=== PATIENT | male | born 1980 | race Caucasian/White ===

== ENCOUNTER 2018-05-23 18:29 | Emergency (ER) | payer BC, OTHER ==
[2018-05-23] MEDS ORDERED: HYDROmorphone 0.5 MG/0.5 ML SYRINGE IVPUSH ONE ×2 (19:04→19:56)
[2018-05-23] MEDS ORDERED: Metoclopramide 10 MG/2 ML SDV IVPUSH ONE (19:05)
--- NOTE | 2018-05-23 19:12 | EDM.PDOC ---
ED HPI GENERAL MEDICAL PROBLEM - General Chief Complaint: ENT Problem Stated Complaint: sob sore throat Time Seen by Provider: 05/23/18 18:55 Source of Information: Reports: Patient, Family History Limitations: Reports: No Limitations - History of Present Illness INITIAL COMMENTS - FREE TEXT/NARRATIVE: 29-year-old male presents the ED with a severe sore throat 48 hours. Associated fever occasional chills. Has had very little oral intake of food or fluids for the last 48 hours. To painful to swallow. Throat kept him awake last night. Been using Motrin with minimal relief. No one he knows is ill. He still has his tonsils in. Denies cough or sputum production. Denies nausea vomiting or diarrhea. Has a few mosquito bites right lower leg that are itchy. Medications were changed recently with change from citalopram to sertraline 2 days ago but this should not make any difference. He was concerned perhaps it was an allergic component to his illness. Has no ear pain but a sense of fullness in his ears. Onset: Sudden Onset Date: 05/21/18 Duration: Day(s): Location: Reports: Neck (Severe sore throat.) Quality: Reports: Ache, Burning Severity: Severe Improves with: Reports: None Worsens with: Reports: Eating Context: Denies: Activity (Try to swallow or drink.), Exercise, Lifting, Sick Contact Associated Symptoms: Reports: Fever/Chills, Malaise. Denies: Confusion, Chest Pain, Cough, cough w sputum, Diaphoresis, Headaches, Nausea/Vomiting, Rash, Seizure, Shortness of Breath, Syncope Treatments [employer]: Reports: NSAIDS (Motrin.) Throat Pain Score (Numeric/FACES): 7 - Related Data Allergies Allergy/AdvReac Type Severity Reaction Status Date / Time No Known Allergies Allergy Verified 05/23/18 18:41 Home Meds: Home Meds Allopurinol [Zyloprim] 200 mg PO DAILY 05/23/18 [History] Amoxicillin/Potassium Clav [Augmentin 500-125 Tablet] 1 each PO BID #18 tablet 05/23/18 [Rx] Sertraline HCl [Zoloft] 50 mg PO DAILY 05/23/18 [History] oxyCODONE HCl/Acetaminophen [Percocet 5-325 mg Tablet] 1 - 2 each PO Q4H PRN # 16 tablet 05/23/18 [Rx] Past Medical History - Past Health History Medical/Surgical History: Denies Medical/Surgical History Musculoskeletal History: Reports: Gout Psychiatric History: Reports: Anxiety, Depression Social & Family History - Tobacco Use Smoking Status *Q: Never Smoker - Caffeine Use Caffeine Use: Reports: Coffee - Recreational Drug Use Recreational Drug Use: No - Living Situation & Occupation Living situation: Reports: Occupation: Employed ED ROS ENT - Review of Systems Review Of Systems: See Below Constitutional: Reports: Fever, Chills, Malaise (Mild chills.), Weakness, Decreased Appetite, Other (Dizziness). Denies: Fatigue, Weight Loss HEENT: Reports: Throat Pain (Severe sore throat.). Denies: Ear Pain Respiratory: Reports: No Symptoms Cardiovascular: Reports: No Symptoms Endocrine: Reports: No Symptoms GI/Abdominal: Reports: No Symptoms : Reports: No Symptoms Musculoskeletal: Reports: No Symptoms Skin: Reports: No Symptoms Neurological: Reports: No Symptoms Psychiatric: Reports: No Symptoms Hematologic/Lymphatic: Reports: No Symptoms Immunologic: Reports: No Symptoms ED EXAM, ENT - Physical Exam Exam: See Below Exam Limited By: No Limitations General Appearance: Alert, WD/WN, Moderate Distress, Other (You can tell these starting to swallow. Voice is mildly hoarse.) Eye Exam: Bilateral Eye: Normal Inspection Ears: Other (Multiple scars on both tympanic membranes from multiple TM tube insertions. No active infection appreciated at this time) Mouth/Throat: Pharyngeal Erythema, Throat Pain ( Mild.), Throat Swelling ( Moderate diffuse pharyngeal erythema. Slight exudate right tonsil.), Tonsillar Erythema ( severe. moderate bilateral ), Tonsillar Exudates, Tonsillar Swelling (Mild on the right tonsil minimal.), Trismus (Mild.). No: Tongue Swelling, Uvular Deviation Neck: Supple, Non-Tender, Full Range of Motion, Lymphadenopathy (L) (Mild. Mild. ), Lymphadenopathy (R) Respiratory/Chest: No Respiratory Distress, Lungs Clear, Normal Breath Sounds, No Accessory Muscle Use, Chest Non-Tender Cardiovascular: Normal Peripheral Pulses, Regular Rate, Rhythm, No Edema, No Gallop, No Murmur, No Rub GI/Abdominal: Normal Bowel Sounds, Soft, Non-Tender, No Organomegaly, No Abnormal Bruit Back: Normal Inspection, Full Range of Motion. No: CVA Tenderness (L), CVA Tenderness (R) Extremities: Normal Inspection, Normal Range of Motion, Non-Tender, No Pedal Edema Neurological: Alert, Oriented, CN II-XII Intact, Normal Cognition, Normal Gait Psychiatric: Normal Affect, Normal Mood Skin: Warm, Dry, Intact, Normal Color, No Rash Course - Vital Signs Last Recorded V/S: Last Vital Signs Temp 38.2 C H 05/23/18 18:37 Pulse 88 05/23/18 18:37 Resp 16 05/23/18 18:37 BP 134/88 05/23/18 18:37 Pulse Ox 97 05/23/18 18:37 - Orders/Labs/Meds Orders: Active Orders 24 hr Category Date Time Status Soft Tissue Neck w Cont [CT] Stat Exams 05/23/18 19:57 Taken CULTURE STREP A CONFIRMATION [] Stat Lab 05/23/18 18:45 Results STREP SCRN A RAPID W CULT CONF [] Stat Lab 05/23/18 18:45 Results Dextrose 5%-0.9% NaCl [Dextrose 5%-Normal Saline] 1,000 Med 05/23/18 19:15 Active ml IV ASDIRECTED Ketorolac [Toradol] Med 05/23/18 19:15 Active 30 mg IVPUSH ONETIME Sodium Chloride 0.9% [Saline Flush] Med 05/23/18 20:02 Active 10 ml FLUSH ONETIME PRN cefTRIAXone [Rocephin] 2 gm Med 05/23/18 19:15 Active Sodium Chloride 0.9% [Normal Saline] 100 ml IV Q24H Medication Orders Dextrose/Sodium Chloride (Dextrose 5%-Normal Saline) 1,000 mls @ 999 mls/hr IV ASDIRECTED [facility] Last Admin: 05/23/18 19:27 Dose: 999 mls/hr Ceftriaxone Sodium 2 gm/ (Sodium Chloride) 100 mls @ 100 mls/hr IV Q24H [facility] Last Admin: 05/23/18 19:42 Dose: 100 mls/hr Ketorolac Tromethamine (Toradol) 30 mg IVPUSH ONETIME [facility] Last Admin: 05/23/18 19:29 Dose: 30 mg Sodium Chloride (Saline Flush) 10 ml FLUSH ONETIME PRN PRN Reason: IV FLUSH Last Admin: 05/23/18 20:11 Dose: 10 ml Labs: Laboratory Tests 05/23/18 05/23/18 05/23/18 Range/Units 19:25 19:25 19:25 WBC 12.32 H (4.23-9.07) K/mm3 RBC 5.42 (4.63-6.08) M/mm3 Hgb 15.4 (13.7-17.5) gm/L Hct 45.3 (40.1-51.0) % MCV 83.6 (79.0-92.2) fl MCH 28.4 (25.7-32.2) pg MCHC 34.0 (32.2-35.5) g/dl RDW Std Deviation 38.3 (35.1-43.9) fL Plt Count 247 (163-337) K/mm3 MPV 9.8 (9.4-12.3) fl Neutrophils % (Manual) 73 H (40-60) % Band Neutrophils % 0 (0-10) % Lymphocytes % (Manual) 13 L (20-40) % Atypical Lymphs % 5 % Monocytes % (Manual) 6 (2-10) % Eosinophils % (Manual) 3 (0.8-7.0) % Basophils % (Manual) 0 L (0.2-1.2) Platelet Estimate Adequate RBC Morph Comment Normal Sodium 139 (136-145) mEq/L Potassium 3.7 (3.5-5.1) mEq/L Chloride 103 (98-107) mEq/L Carbon Dioxide 29 (21-32) mEq/L Anion Gap 10.7 (5-15) BUN 13 (7-18) mg/dL Creatinine 1.3 (0.7-1.3) mg/dL Est Cr Clr Drug Dosing 74.54 mL/min Estimated GFR (MDRD) > 60 (>60) mL/min BUN/Creatinine Ratio 10.0 L (14-18) Glucose 95 (74-106) mg/dL Calcium 9.0 (8.5-10.1) mg/dL Total Bilirubin 0.7 (0.2-1.0) mg/dL AST 17 (15-37) U/L ALT 25 (16-63) U/L Alkaline Phosphatase 69 (46-116) U/L C-Reactive Protein 6.9 H* (<1.0) mg/dL Total Protein 7.8 (6.4-8.2) g/dl Albumin 3.9 (3.4-5.0) g/dl Globulin 3.9 gm/dL Albumin/Globulin Ratio 1.0 (1-2) Monoscreen Negative (NEGATIVE) Meds: Medications Generic Name Dose Route Start Last Admin Trade Name Freq PRN Reason Stop Dose Admin Dextrose/Sodium Chloride 1,000 mls @ 999 mls/hr 05/23/18 19:15 05/23/18 19:27 Dextrose 5%-Normal Saline IV 999 mls/hr ASDIRECTED AYALA Administration Ceftriaxone Sodium 2 gm/ 100 mls @ 100 mls/hr 05/23/18 19:15 05/23/18 19:42 Sodium Chloride IV 100 mls/hr Q24H AYALA Administration Ketorolac Tromethamine 30 mg 05/23/18 19:15 05/23/18 19:29 Toradol IVPUSH 30 mg ONETIME AYALA Administration Sodium Chloride 10 ml 05/23/18 20:02 05/23/18 20:11 Saline Flush FLUSH 10 ml ONETIME PRN Administration IV FLUSH Discontinued Medications Generic Name Dose Route Start Last Admin Trade Name Dhruvq PRN Reason Stop Dose Admin Dexamethasone 10 mg 05/23/18 19:30 05/23/18 19:41 Dexamethasone IV 05/23/18 19:31 10 mg ONETIME ONE Administration Hydromorphone HCl 0.5 mg 05/23/18 19:04 05/23/18 19:30 Dilaudid IVPUSH 05/23/18 19:05 0.5 mg ONETIME ONE Administration Hydromorphone HCl 1 mg 05/23/18 19:56 05/23/18 20:01 Dilaudid IVPUSH 05/23/18 19:57 1 mg ONETIME ONE Administration Iopamidol 100 ml 05/23/18 20:02 05/23/18 20:11 Isovue-300 (61%) IVPUSH 05/23/18 20:03 100 ml ONETIME ONE Administration Metoclopramide HCl 7.5 mg 05/23/18 19:05 05/23/18 19:29 Reglan IVPUSH 05/23/18 19:06 7.5 mg ONETIME ONE Administration - Radiology Interpretation Free Text/Narrative:: 37-year-old male presents to the ED with a severe sore throat for the last 48 hours. Associated very little intake orally for the last 48 hours due to pain. Associated fever occasional chills. Examination shows mild pharyngitis with some exudate on the right tonsil. Tonsils are not grossly inflamed or swollen. He does have mild diffuse cervical lymphadenopathy or submandibular adenopathy that is painful. Plan rapid strep screen. Monospot. Routine labs without blood cultures at this time. IV will be D5 normal saline at open. Toradol 30 mg IV with Dilaudid 0.5 mg IV and Reglan 7.5 mg IV for pain and nausea relief. Will start on Rocephin 2 g IV Unasyn his labs are drawn. Contemplate use of dexamethasone depending on lab values. - Re-Assessments/Exams Free Text/Narrative Re-Assessment/Exam: 05/23/18 19:25 rapid strep screen came back negative. 05/23/18 20:13 labs are back.Labs reveal a normal white count at 8.15 with a normal automated differential at 60% neutrophils. Hemoglobin is 14.9 with hematocrit of 42.7. Platelet count is 292,000. Sodium is 138 with potassium at 3.5. Chloride 101. Bicarbonate 25. Anion gap slightly elevated at 115.5. BUNs was 17. Creatinine 1.2. Glucose is 103.. Serum calcium is 8.8. Liver function is normal. Since he did have don't have a real formal cause for his pharyngeal infection. I'm going to have CT of his soft tissue of his neck performed with IV contrast. 05/23/18 20:38 CT of the soft tissues of the neck with IV contrast was performed. No positive findings identified other than a punctate calculus in the right submandibular gland itself. There is no retropharyngeal swelling or abscess. There is no peritonsillar abscess. Therefore the cause of his pharyngitis appears to be bacterial but of unclear etiology. Cultures are pending. Probably to finish up his IV fluids after IV Rocephin is completed. He will then be discharged on Augmentin 500 mg twice daily starting tomorrow morning for the next 9 days. Percocet tabs 04/02/25 one or 2 every 4-6 hours needed for pain relief. Continuing Motrin 600 mg every 6 hours for relief of pain and fever. Should improve over the next 48-72 hours. If not he needs to be reviewed. Departure - Departure Time of Disposition: 21:26 Disposition: Home, Self-Care 01 Condition: Fair Clinical Impression: Pharyngitis Qualifiers: Pharyngitis/tonsillitis etiology: unspecified etiology Qualified Code(s): J02.9 - Acute pharyngitis, unspecified - Discharge Information Prescriptions: Amoxicillin/Potassium Clav [Augmentin 500-125 Tablet] 1 each PO BID #18 tablet oxyCODONE HCl/Acetaminophen [Percocet 5-325 mg Tablet] 1 - 2 each PO Q4H PRN # 16 tablet PRN Reason: pain relief. Instructions: Pharyngitis, [id number] Referrals: Jenae Starr PA-C [Primary Care Provider] - Forms: ED Department Discharge Additional Instructions: Evaluation the emergency room today in regards to a 2 day history of severe sore throat with limited ability to eat and drink. Associated fever with mild chills. Examination reveals inflammation of the back of the throat with very minimal swelling of the tonsils. There was no evidence of peritonsillar abscess. Rapid strep screen proved to be negative. Monospot was negative as well. Labs revealed a mild elevation of the white blood cell count and CRP , which is a measurement of infection, is also mildly elevated as well suggesting an underlying bacterial infection. The cause is unclear. Throat cultures are pending. CT of the soft tissues of the neck was performed and no serious pathology was identified behind the throat muscles or in the peritonsillar spaces. You're treated with initial dose of antibiotic in the emergency room Rocephin 2 g. He received pain medications Dilaudid 1.5 mg and Toradol 30 mg IV. You were also given a steroid dexamethasone 10 mg IV which will start work in 4-6 hours. This is designed to reduce pain and swelling in your throat. treatment at home is plenty of fluids such as Gatorade or Powerade to prevent dehydration. Avoiding acidic products such as orange juice etc. Soft diet such as ice cream, yogurt etc. Motrin 600 mg every 6 hours as needed for pain and inflammation and fever relief. Antibiotic is to be Augmentin 500 mg twice daily for the next 9 days starting tomorrow morning. Pain medication is Percocet 5/325 milligrams one or 2 every 4-6 hours needed for pain relief usually with something in your stomach. They can cause nausea on a completely empty stomach. Expect improvement over the next 48-72 hours. If not you should be seen again. - My Orders Last 24 Hours: My Active Orders 05/23/18 18:45 CULTURE STREP A CONFIRMATION [RM] Stat STREP SCRN A RAPID W CULT CONF [RM] Stat 05/23/18 19:15 Dextrose 5%-0.9% NaCl [Dextrose 5%-Normal Saline] 1,000 ml IV ASDIRECTED Ketorolac [Toradol] 30 mg IVPUSH ONETIME cefTRIAXone [Rocephin] 2 gm Sodium Chloride 0.9% [Normal Saline] 100 ml IV Q24H 05/23/18 19:57 Soft Tissue Neck w Cont [CT] Stat 05/23/18 20:02 Sodium Chloride 0.9% [Saline Flush] 10 ml FLUSH ONETIME PRN - Assessment/Plan Last 24 Hours: My Active Orders 05/23/18 18:45 CULTURE STREP A CONFIRMATION [RM] Stat STREP SCRN A RAPID W CULT CONF [RM] Stat 05/23/18 19:15 Dextrose 5%-0.9% NaCl [Dextrose 5%-Normal Saline] 1,000 ml IV ASDIRECTED Ketorolac [Toradol] 30 mg IVPUSH ONETIME cefTRIAXone [Rocephin] 2 gm Sodium Chloride 0.9% [Normal Saline] 100 ml IV Q24H 05/23/18 19:57 Soft Tissue Neck w Cont [CT] Stat 05/23/18 20:02 Sodium Chloride 0.9% [Saline Flush] 10 ml FLUSH ONETIME PRN
[2018-05-23] MEDS ORDERED: Ketorolac 30 MG/ML SDV IVPUSH SCH (19:15)
[2018-05-23] MEDS ORDERED: Dextrose 5%-0.9% NaCl 1,000 ML IV SCH (19:15)
[2018-05-23] MEDS ORDERED: cefTRIAXone 2 GM in Sodium Chloride 0.9% 100 ML IV SCH (19:15)
[2018-05-23] MEDS ORDERED: Dexamethasone 4 MG/ML 5 ML MDV IV ONE (19:30)
[2018-05-23] MEDS ORDERED: Sodium Chloride 0.9% 10 ML Syringe FLUSH PRN (20:02)
[2018-05-23] MEDS ORDERED: Iopamidol 612 MG/ML 100 ML Bottle IVPUSH ONE (20:02)
--- NOTE | 2018-05-25 08:54 | CT ---
CT neck Technique: Multiple axial sections through the neck were obtained. Intravenous contrast was utilized. Comparison: No prior CT neck exam. Findings: Mucosal thickening with questionable small amount of fluid within the right maxillary sinus is noted. Other paranasal sinuses that are seen appear clear. Parotid salivary glands are unremarkable. Calcification is noted next to the right submandibular salivary gland possibly within the submandibular salivary duct. Submandibular salivary glands are otherwise unremarkable. Scattered lymph nodes are seen within the neck which are felt to be within normal limits. Parapharyngeal soft tissues are normal. No enhancing vascular structures are seen. Thyroid gland appears within normal limits. Visualized lung apices are clear. Epiglottis is normal in size. Prevertebral soft tissues are within normal limits. Bone window settings were reviewed which show nothing acute. Impression: 1. Calcification next to the submandibular salivary gland possibly within the right submandibular salivary duct. 2. Mucosal thickening within right maxillary sinus with questionable small amount of right maxillary fluid. 3. No additional abnormality is seen on CT study of the neck. Diagnostic code #3 Agree with preliminary report issued by [facility] ([facility] preliminary report dictated on 05/23/18, 9:27 PM Central Time)
== END 2018-05-23 21:37 | disposition home or self-care (01) ==
LOC: JD.ED 18:29
DX: J02.9 Acute pharyngitis, unspecified (principal); F41.9 Anxiety disorder, unspecified; F32.9 Major depressive disorder, single episode, unspecified; Z79.899 Other long term (current) drug therapy
CPT/HCPCS: 36415; 70491; 80053; 85007; 85027; 86140; 86308; 87081; 87430; 96361; 96365; 96375; 96376; 99284; J0696; J1100; J1170; J1885; J2765; J7030; J7042; J7050; Q9967

== ENCOUNTER 2020-01-26 06:18 | Day surgery (SDC) | payer MEDICAID ==
--- NOTE | 2020-01-26 05:54 | PCM.PREANE ---
Preanesthetic Assessment - Anesthesia/Transfusion/Family Hx Anesthesia History: Prior Anesthesia Without Reaction Family History of Anesthesia Reaction: No Transfusion History: No Prior Transfusion(s) Intubation History: Unknown - Review of Systems General: No Symptoms Pulmonary: No Symptoms (ETOH: occasionally) Cardiovascular: No Symptoms Gastrointestinal: No Symptoms Neurological: No Symptoms (Acute lower back pain-denies any today.) Other: Reports: Thyroid Problems (History of thyroiditis), Sinus Problem ( History of acute sinusitis), Neck Pain (denies any pain today.), Anxiety - Physical Assessment NPO Status Date: 01/25/20 NPO Status Time: 21:30 Vital Signs: HR:85 BP:133/100 Resp:16 Sat:95% Temp:98 Height: 1.73 m Weight: 94.801 kg ASA Class: 2 Mental Status: Alert & Oriented x3 Airway Class: Mallampati = 3 Dentition: Reports: Normal Dentition, Caries Thyro-Mental Finger Breadths: 3 Mouth Opening Finger Breadths: 2 ROM/Head Extension: Full Lungs: Clear to Auscultation, Normal Respiratory Effort Cardiovascular: Regular Rate, Regular Rhythm, No Murmurs - Lab Values: Laboratory Last Values MRSA (PCR) Negative 01/18/20 14:58 All labs reviewed and noted and within acceptable ranges to proceed with scheduled procedure. - Allergies Allergies/Adverse Reactions: Allergies Allergy/AdvReac Type Severity Reaction Status Date / Time No Known Allergies Allergy Verified 01/25/20 14:07 - Anesthesia Plan Pre-Op Medication Ordered: None - Acknowledgements Anesthesia Type Planned: General Anesthesia (Left ISB under US guidance for post operative pain control requested by Dr. Medina.) Pt an Appropriate Candidate for the Planned Anesthesia: Yes Alternatives and Risks of Anesthesia Discussed w Pt/Guardian: Yes Pt/Guardian Understands and Agrees with Anesthesia Plan: Yes PreAnesthesia Questionnaire - Past Health History Medical/Surgical History: Denies Medical/Surgical History HEENT History: Reports: Epistaxis, Impaired Vision, Otitis Media, Sinusitis, Other (See Below) Other HEENT History: ear ache, nasal polyp, sore throat, tonsillitis, strep throat Cardiovascular History: Reports: None Respiratory History: Reports: Other (See Below) Other Respiratory History: upper respiratory infection, acute bronchitis, wheezing Gastrointestinal History: Reports: None Genitourinary History: Reports: None LITHOPRESS OPERATOR History: Reports: None Musculoskeletal History: Reports: Back Pain, Chronic, Gout Other Musculoskeletal History: right ankle pain Neurological History: Reports: Other (See Below) Other Neuro History: neck pain Psychiatric History: Reports: Anxiety, Depression Endocrine/Metabolic History: Reports: Other (See Below) Other Endocrine/Metabolic History: thyroid pain, thyroiditis Hematologic History: Reports: None Immunologic History: Reports: None Oncologic (Cancer) History: Reports: None Dermatologic History: Reports: None - Past Surgical History Head Surgeries/Procedures: Reports: None HEENT Surgical History: Reports: Myringotomy w Tube(s), Tonsillectomy Cardiovascular Surgical History: Reports: None Respiratory Surgical History: Reports: None GI Surgical History: Reports: None Female Surgical History: Reports: None Male Surgical History: Reports: None Endocrine Surgical History: Reports: None Neurological Surgical History: Reports: None Musculoskeletal Surgical History: Reports: Shoulder Surgery Other Musculoskeletal Surgeries/Procedures:: right ankle surgery, facial surgery Oncologic Surgical History: Reports: None Dermatological Surgical History: Reports: None - SUBSTANCE USE Smoking Status *Q: Former Smoker Recreational Drug Use History: No - HOME MEDS Home Medications: Home Meds Sertraline HCl [Zoloft] 50 mg PO DAILY 05/23/18 [History] allopurinoL [Zyloprim] 200 mg PO DAILY 05/23/18 [History] Diclofenac Sodium 1 dose TOP DAILY PRN 01/25/20 [History] Acetaminophen/HYDROcodone [Curtis 325-5 MG] 1 - 2 tab PO Q6H PRN #40 tablet 01/26 [Rx] Cyclobenzaprine [Flexeril] 10 mg PO Q12H PRN #30 tab 01/26/20 [Rx] - CURRENT (IN HOUSE) MEDS Current Meds: Current Medications Epinephrine HCl (Adrenalin) 3 mg IRR ONETIME AYALA Stop: 01/26/20 11:00 Lactated Ringer's (Ringers, Lactated) 1,000 mls @ 125 mls/hr IV ASDIRECTED AYALA Stop: 01/26/20 23:00 Lidocaine/Sodium Bicarbonate (Buffered Lidocaine 1% In Ns 8.4%) 0.25 ml IDERM ONETIME PRN PRN Reason: Prior to IV Start Stop: 01/26/20 18:00 Sodium Chloride (Saline Flush) 10 ml FLUSH ASDIRECTED PRN PRN Reason: Keep Vein Open Stop: 01/26/20 18:00 Discontinued Medications Epinephrine HCl (Adrenalin) Confirm Administered Dose 1 mg .ROUTE .STK-MED ONE Stop: 01/26/20 05:33 Lidocaine HCl (Xylocaine-Mpf 1%) Confirm Administered Dose 2 mls @ as directed .ROUTE .STK-MED ONE Stop: 01/26/20 05:33 Ropivacaine (Naropin 0.5%) Confirm Administered Dose 30 ml .ROUTE .STK-MED ONE Stop: 01/26/20 05:33
[~2020-01-26 06:18] MED LIST: Albuterol 0.083% 2.5 MG/3 ML Neb Soln NEB PRN; EPINEPHrine 1 MG/ML SDV ONE; Lidocaine 1% 2 ML ONE; Ropivacaine 0.5% 5 MG/ML 30 ML SDV ONE
[2020-01-26] MEDS ORDERED: Lidocaine 1% 6 ML ONE (06:26)
[2020-01-26] MEDS ORDERED: Ondansetron 4 MG/2 ML SDV ONE (06:26)
[2020-01-26] MEDS ORDERED: Propofol 200 MG/20 ML SDV ONE ×2 (06:26→07:29)
[2020-01-26] MEDS ORDERED: ceFAZolin 1 GM Vial ONE (06:26)
[2020-01-26] MEDS ORDERED: Lactated Ringers 1,000 ML ONE (06:26)
[2020-01-26] MEDS ORDERED: Dexamethasone 4 MG/ML 5 ML MDV ONE (06:26)
[2020-01-26] MEDS ORDERED: Ketorolac 30 MG/ML SDV ONE ×2 (06:26→10:24)
[2020-01-26] MEDS ORDERED: Rocuronium 50 MG/5 ML Vial ONE (06:26)
[2020-01-26] MEDS ORDERED: Midazolam 1 MG/ML 2 ML SDV ONE (06:27)
[2020-01-26] MEDS ORDERED: fentaNYL 250 MCG/5 ML SDV ONE (06:27)
[2020-01-26] MEDS ORDERED: Lidocaine 1%/Sod Bicarbonate in NS 8.4% 1 ML Syringe IDERM PRN (07:00)
[2020-01-26] MEDS ORDERED: Sodium Chloride 0.9% 10 ML Syringe FLUSH PRN (07:00)
[2020-01-26] MEDS ORDERED: Lactated Ringers 1,000 ML IV SCH (07:00)
[2020-01-26] MEDS ORDERED: EPINEPHrine 1 MG/ML 30 ML MDV IRR SCH (07:00)
--- NOTE | 2020-01-26 07:17 | PCM.SN ---
- Free Text/Narrative Note: Date: 01/26/2020 Time Out: 658 Start: 658 Stop: 708 Diagnosis: Left arm strain of tendon of long head of biceps Current Procedure: Left interscalene block under US guidance for postoperative pain control requested by Dr. Medina. Patient chart reviewed, risk/benefits discussed with patient, consent obtained. Patient positioned supine, monitors/alarms on, oxygen placed via nasal cannula at 2 LPM. IV sedation administered: Versed 2mg IV, Fentanyl 150mcg IV given in preop prior to block placement. Left shoulder prepped with two chloropreps. Sterile drapes placed with aseptic technique noted. Under US guidance, left subclavian artery visualized along with the left brachial plexus. Plexus followed up to C6 cricoid level, and area localized with 2mls of 1% lidocaine. 22gauge 2 inch stimiplex needle advanced under US with 0.6mV with stimulation of biceps noted. Good stimulation noted with decreased voltage and absent at 0.3mVs. 1ml of Normal Saline injected with loss of stimulation noted to confirm needle not placed intraneurally. Incremental dosing of 5mls with negative aspiration noted prior to each injection of 0.5% ropivacaine with 1:200,000 epinephrine. Total volume=30mls. Please refer to nurses noted for vital signs. Payton Ruiz CRNA
[2020-01-26] MEDS ORDERED: Albuterol 0.083% 2.5 MG/3 ML Neb Soln NEB PRN (07:57)
[2020-01-26] MEDS ORDERED: fentaNYL 100 MCG/2 ML SDV IVPUSH PRN (07:57)
[2020-01-26] MEDS ORDERED: Midazolam 1 MG/ML 2 ML SDV IVPUSH PRN (07:57)
[2020-01-26] MEDS ORDERED: Ondansetron 4 MG/2 ML SDV IVPUSH PRN (07:57)
[2020-01-26] MEDS ORDERED: diphenhydrAMINE 50 MG/ML SDV IVPUSH PRN (07:57)
[2020-01-26] MEDS ORDERED: HYDROmorphone 0.5 MG/0.5 ML Syringe IVPUSH PRN (07:57)
[2020-01-26] MEDS ORDERED: ePHEDrine 50 MG/ML SDV IVPUSH PRN (07:57)
[2020-01-26] MEDS ORDERED: Phenylephrine 1 MG in Sodium Chloride 0.9% 10 ML IV SCH (08:00)
--- NOTE | 2020-01-26 09:13 | PCM.POSTAN ---
POST ANESTHESIA ASSESSMENT - MENTAL STATUS Mental Status: Alert - VITAL SIGNS Vital Signs: Last Vital Signs Temp 97.6 01/26/20904 Pulse 103 01/26/2005 Resp 23 01/26/20904 BP 150/110 01/26/20904 Pulse Ox 97 01/26/20904 - RESPIRATORY Respiratory Status: Respiratory Rate WNL, Airway Patent, O2 Saturation Stable, Supplemental Oxygen - CARDIOVASCULAR CV Status: Pulse Rate WNL, Blood Pressure Stable - GASTROINTESTINAL GI Status: No Symptoms - POST OP HYDRATION Hydration Status: Adequate & Stable
--- NOTE | 2020-01-26 11:55 | PCM48HPAN ---
Post Anesthesia Note - EVALUATION WITHIN 48HRS OF ANESTHETIC Vital Signs in Normal Range: Yes Patient Participated in Evaluation: Yes Respiratory Function Stable: Yes Airway Patent: Yes Cardiovascular Function Stable: Yes Hydration Status Stable: Yes Pain Control Satisfactory: Yes Nausea and Vomiting Control Satisfactory: Yes Mental Status Recovered: Yes Vital Signs: Last Vital Signs Temp 36.9 C 01/26/20 10:35 Pulse 80 01/26/20 10:35 Resp 18 01/26/20 10:35 BP 126/82 01/26/20 10:35 Pulse Ox 96 01/26/20 10:35
--- NOTE | 2020-01-28 13:17 | PCM.OPNOTE ---
- General Post-Op/Procedure Note Date of Surgery/Procedure: 01/26/20 Operative Procedure(s): left shoulder video arthroscopy with biceps tenotomy, extensive debridement and subacromial decompression Pre Op Diagnosis: left shoulder biceps tendinopathy with SLAP tear and impingement Post-Op Diagnosis: Same Anesthesia Technique: General ET Tube, Regional Block Primary Surgeon: Taiwo Medina Anesthesia Provider: Payton Ruiz Share Dairy Farmer: Carissa Thomas EBMike in mLs: 5 Complications: None Condition: Good
--- NOTE | 2020-01-31 13:55 | OR ---
DATE OF OPERATION: 01/26/2020 SURGEON: Taiwo Medina MD OPERATION PERFORMED: Left shoulder video arthroscopy with biceps tenotomy, extensive debridement, subacromial decompression. PREOPERATIVE DIAGNOSIS: Left shoulder biceps tendinopathy with SLAP tear and impingement. POSTOPERATIVE DIAGNOSIS: Left shoulder biceps tendinopathy with type 1 SLAP tear and impingement. ANESTHESIA: General endotracheal intubation with regional interscalene block. ANESTHESIA PROVIDER: Payton Ruiz CRNA TOILET ATTENDANT: Carissa Thomas PA-C ESTIMATED BLOOD LOSS: Less than 5 mL. COMPLICATIONS: None. CONDITION: Stable. DESCRIPTION OF PROCEDURE: The patient was identified in the preoperative holding area where proper site was marked and identified by surgeon. The patient was taken back to operating theater where after adequate anesthesia the patient was placed in the lazy right lateral decubitus position. Wedge was placed posteriorly. The patient was secured to the table. Left shoulder was then sterilely prepped and draped in usual sterile fashion. OR time-out was performed. The patient received 2 g IV Ancef. 12 pounds of traction was applied to the left upper extremity. Standard posterior incision was made and scope trocar was introduced to glenohumeral joint. This showed extensive fraying of the superior labrum as well as biceps tendinopathy and erythema and fraying of the biceps tendon near its attachment. The subscapularis tendon was intact. The articular surface showed no signs of chondromalacia. The undersurface of the rotator cuff was intact with no signs of erythema. At this time, an anterior portal was created with the use of outside-in technique. A biceps tenotomy was then performed and an extensive debridement of any loose fragments of the labrum as well as the attachment of the biceps was done at this time. Attention was turned to the subacromial space. A lateral portal was created. The patient was noted to have a large amount of bursa in the subacromial space as well as a type 2 acromion with significant fraying of the CA ligament anteriorly. An extensive debridement was done of the subacromial space, and then with a 4.0 full-radius branden, I was able to do a subacromial decompression and acromioplasty bringing it back to a smooth border with the posterior border. The AC joint was found to be intact with no signs of erythema and limited arthritis. The rotator cuff was otherwise intact with no signs of fraying. Excess saline was drained from the shoulder. 3-0 nylon suture was used for closure of the skin. The patient had a sterile soft dressing applied as well as a pillow sling and sent to the PACU in stable condition. DARION /[id number]
== END 2020-01-26 11:04 | disposition home or self-care (01) ==
LOC: JD.SDS 06:18
PROVIDERS: ATTEND Orthopaedic Surgery
DX: S43.432A Superior glenoid labrum lesion of left shoulder, initial encounter (principal); S46.112A Strain of muscle, fascia and tendon of long head of biceps, left arm, initial encounter; M75.22 Bicipital tendinitis, left shoulder; M75.42 Impingement syndrome of left shoulder; F41.9 Anxiety disorder, unspecified; Z79.899 Other long term (current) drug therapy; Z98.890 Other specified postprocedural states
CPT/HCPCS: 29823; 29826; 87641; J0171; J0690; J1100; J1885; J2001; J2250; J2405; J2704; J2795; J3010; J7120; 01630; 64415

== ENCOUNTER 2022-01-23 07:11 | Day surgery (SDC) | payer MEDICAID ==
[~2022-01-23 07:11] MED LIST changes: -Albuterol 0.083% 2.5 MG/3 ML Neb Soln NEB PRN; +Dexmedetomidine 200 MCG/2 ML SDV ONE; -EPINEPHrine 1 MG/ML SDV ONE; +Lactated Ringers 1,000 ML IV SCH; -Lidocaine 1% 2 ML ONE; +Lidocaine 1%/Sod Bicarbonate in NS 8.4% 1 ML Syringe IDERM PRN; +Sodium Chloride 0.9% 10 ML Syringe FLUSH PRN; +Sodium Chloride 0.9% 10 ML Syringe FLUSH SCH
[2022-01-23] MEDS ORDERED: Dexamethasone 4 MG/ML 5 ML MDV ONE (07:12)
[2022-01-23] MEDS ORDERED: Midazolam 1 MG/ML 2 ML SDV ONE ×2 (07:12→07:13)
[2022-01-23] MEDS ORDERED: fentaNYL 100 MCG/2 ML SDV ONE (07:13)
[2022-01-23] MEDS ORDERED: EPINEPHrine 1 MG/ML 30 ML MDV IRR SCH (07:15)
[2022-01-23] MEDS ORDERED: Lidocaine 1% PF 2 ML SDV ONE ×2 (08:00)
[2022-01-23] MEDS ORDERED: Bupivacaine 0.5% 30 ML SDV ONE (08:05)
[2022-01-23] MEDS ORDERED: Propofol 200 MG/20 ML SDV ONE (08:47)
[2022-01-23] MEDS ORDERED: ceFAZolin 1 GM Vial ONE (10:04)
[2022-01-23] MEDS ORDERED: Ondansetron 4 MG/2 ML SDV ONE (10:08)
== END 2022-01-23 13:30 | disposition home or self-care (01) ==
LOC: JD.SDS 07:11
PROVIDERS: ATTEND Orthopaedic Surgery
DX: S43.431A Superior glenoid labrum lesion of right shoulder, initial encounter (principal); M75.41 Impingement syndrome of right shoulder; M75.21 Bicipital tendinitis, right shoulder; F41.9 Anxiety disorder, unspecified; M10.9 Gout, unspecified; F32.A Depression, unspecified; Z88.8 Allergy status to other drugs, medicaments and biological substances; Z79.899 Other long term (current) drug therapy; Z98.890 Other specified postprocedural states; Z87.891 Personal history of nicotine dependence
CPT/HCPCS: 29807; 29826; C1713; J0171; J0690; J1100; J2250; J2405; J2704; J2795; J3010; J3490; J7120; 01630; 64415; 76942

== ENCOUNTER 2025-06-13 14:33 | Emergency (ER) | payer MEDICAID ==
[2025-06-13 15:46] LABS: BASOPHILS ABSOLUTE AUTO 0.1 K/mm3 (0.0-0.2); BASOPHILS PERCENT AUTO 0.7 % (0.0-1.0); EOSINOPHILS ABSOLUTE AUTO 0.2 K/mm3 (0.0-0.4); EOSINOPHILS PERCENT AUTO 2.7 % (0.0-6.0); IMMATURE GRAN ABSOLUTE AUTO 0.06 K/mm3 (0.00-0.05); IMMATURE GRAN PERCENT AUTO 0.7 % (0.0-0.4); LYMPHOCYTES ABSOLUTE AUTO 2.1 K/mm3 (1.0-4.8); LYMPHOCYTES PERCENT AUTO 25.1 % (24.0-44.0); MEAN PLATELET VOLUME 9.2 fl (9.4-12.4); MONOCYTES ABSOLUTE AUTO 0.4 K/mm3 (0.0-0.8); MONOCYTES PERCENT AUTO 5.4 % (0.0-8.0); NEUTROPHILS ABSOLUTE AUTO 5.4 K/mm3 (1.8-7.7); NEUTROPHILS PERCENT AUTO 65.4 % (41.0-71.0); NRBC ABSOLUTE 0.00 (0.00-0.02); NRBC PERCENT 0.0 % (0.0-0.2); PLATELET COUNT,PLT 258 K/mm3 (150-400); RED BLOOD CELL COUNT 5.14 M/mm3 (4.52-5.90); WHITE BLOOD CELL COUNT,WBC 8.20 K/mm3 (3.9-11.3)
[2025-06-13 16:13] LABS: INR 1.03
[2025-06-13 16:19] LABS: A/G RATIO 1.2 (1-2); ALANINE AMINOTRANSFERASE,ALT 25 U/L (16-63); ASPARTATE AMNIOTRANSFERASE,AST 21 U/L (15-37); BILIRUBIN TOTAL 0.5 mg/dL (0.2-1.0); BLOOD UREA NITROGEN,BUN 15 mg/dL (7-18); CARBON DIOXIDE,CO2 28 mEq/L (21-32); CHLORIDE,CL 104 mEq/L (98-107); CREATINE KINASE,CK 114 U/L (39-308); CREATININE 1.1 mg/dL (0.7-1.3); EST CRCL DRUG DOSING (CG) 82.05 mL/min; ESTIMATED GFR 84 mL/min (>60); GLUCOSE RANDOM 134 mg/dL (70-99); POTASSIUM,K 3.7 mEq/L (3.5-5.1); PROTEIN TOTAL,TP 7.0 g/dl (6.4-8.2); SODIUM,NA 141 mEq/L (136-145); TSH 1.401 uIU/mL (0.358-3.74)
[2025-06-13] MEDS: Sodium Chloride 0.9% 10 ML Syringe FLUSH ONE (16:24)
[2025-06-13] MEDS: Gadobenate Dimeglumine 529 MG/ML 20 ML SDV IVPUSH ONE (16:24)
[2025-06-13 17:49] LABS: BUPRENORPHINE SCREEN,URINE NEGATIVE (CUTOFF=10); METHADONE SCREEN, URINE NEGATIVE (CUT0FF=200); METHAMPHETAMINES SCREEN, URINE NEGATIVE (CUTOFF=500); OXYCODONE SCREEN,URINE NEGATIVE (CUT0FF=100); THC SCREEN,URINE 20 NG/ML NEGATIVE (CUTOFF=50)
[2025-06-13 17:54] LABS: AMPHETAMINES SCREEN, URINE NEGATIVE (CUTOFF=500)
== END 2025-06-13 17:55 | disposition home or self-care (01) ==
LOC: JD.ED 14:33
DX: H53.40 Unspecified visual field defects (principal); H54.7 Unspecified visual loss; Z88.8 Allergy status to other drugs, medicaments and biological substances; Z79.899 Other long term (current) drug therapy
CPT/HCPCS: 36415; 70543; 70544; 70553; 80053; 80306; 82550; 83690; 83735; 84443; 85025; 85610; 85652; 86140; 99284; A9577